=== PATIENT | female | born 1980 | race Two or more races ===

== ENCOUNTER 2024-07-12 11:42 | Inpatient (IN) | payer MEDICAID ==
[~2024-07-12] VITALS: Ht 157.5 cm; Wt 66.1 kg
[2024-07-12 15:05] VITALS: BP 124/80; PULSE 80; RESP 16; TEMP 98.8; O2SAT 100
[2024-07-12] MEDS ORDERED: diphenhydrAMINE 25mg capsule PO PRN (16:05)
[2024-07-12] MEDS ORDERED: loperamide 2mg capsule PO PRN (16:05)
[2024-07-12 17:01] VITALS: RESP 16; O2SAT 100
[2024-07-12] MEDS ORDERED: CLON1TAB2 PO (17:26)
[2024-07-12] MEDS ORDERED: LEVE750T6 PO (17:48)
[2024-07-12 19:00] VITALS: RESP 16; O2SAT 98
[2024-07-12] MEDS: acetaminophen 325mg tablet PO PRN (19:58)
[2024-07-12 20:00] VITALS: BP 111/84; PULSE 90; RESP 16; TEMP 98; O2SAT 98
[2024-07-12] MEDS: levetiracetam 250mg tablet PO SCH (20:41)
[2024-07-12] MEDS: gabapentin 300mg capsule PO SCH (20:41)
[2024-07-12] MEDS: traZODone 50mg tablet PO PRN (20:42)
[2024-07-13 07:30] VITALS: BP 105/60; PULSE 61; RESP 18; TEMP 97.2; O2SAT 98
[2024-07-13] MEDS: nicotine 21mg patch - 24 hr TD SCH (08:10)
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
[2024-07-13] MEDS: LORazepam 1 MG tablet PO ONE (11:52)
[2024-07-13 12:53] LABS: CHOL/HDL RATIO 2.8 (0.00-4.99); CHOLESTEROL 196 MG/DL (0-200); HDL CHOLESTEROL 70 MG/DL (35-60); LDL CHOLESTEROL 108 MG/DL (50-100); TRIGLYCERIDES 53 MG/DL (20-135)
[2024-07-13] MEDS: hydrOXYzine 25 MG tablet PO PRN (17:12)
--- NOTE | 2024-07-13 17:59 | HISTORY AND PHYSICAL-Residence ---
History & Physical Providers to CC Resident Creating Document: ELISHA ZHANG RES CC: MUSTAPHA TORIBIO MD ~ History of Present Illness Reason for Admit\Complaint: Suicidal thoughts, delusions History of Present Illness 44-year-old female with history of bipolar disorder, schizophrenia is admitted to the [facility] for suicidal thoughts. Patient stated she uses Keppra for epilepsy. Her last episode of seizure was three months ago. She is taking Keppra daily. She denies any other medical issues. Denies chest pain, cough, shortness of breath, headache, visual disturbances. Allergies: Coded Allergies: No Known Allergies (Unverified , 07/12/24) Home Medications Home Medications Active Reported Keppra (Levetiracetam) 750 Mg Tablet 1 Tab PO Q12H Klonopin (Clonazepam) 1 Mg Tablet 1 Tab PO DAILY PRN Past Surgical History Surgical History Comment Family History Family History: FH: bipolar disorder FATHER Past Social History Social History Comment Drinks alcohol daily, quitted alcohol few days ago history of methamphetamine use, quitted few days ago opioid addiction history of sober for the past three years, relapsed five months ago, quitted few days ago Smokes cannabis , later few days On smoking stopped a week ago ROS ROS ROS Constitutional: No fever, dizziness, weakness. no change in appetite/weight HEENT: No blurring of the vision, No sore throat, epistaxis, tinnitus Cardiovascular: No chest pain/discomfort, palpitations, syncope. No pedal edema Respiratory: No sob, cough,, hemoptysis Gastrointestinal: No abdominal pain, nausea, vomiting. No diarrhea, constipation, melena. Genitourinary: No frquency, urgency, incontinence, nocturia. No dysuria, hematuria Musculoskeletal: No arthralgia, myalgia Endocrine: No fatigue, polydipsia, polyuria. No heat or cold intolerance Neurologic: No headache, vertigo. No weakness, numbness or tingling of extremities Hematologic: No bleeding or bruises Reviewed in full. All negative except for pertinent positives in HPI Exam Vitals: Vital Signs Date Time Temp Pulse Resp B/P (MAP) Pulse Ox O2 Delivery O2 Flow Rate FiO2 07/13/24 07:30 18 98 Room Air 07/13/24 07:30 97.2 61 105/60 (75) General: General: Adult female, AAO x4, not in apparent distress Head: Normocephalic with an atraumatic Eyes: Pupils- 3mm, reacting to light, conjunctiva- anicteric Nose and throat: No polyps, septum- normal, no mucosal ulcers Neck: Supple, no lymphadenopathy, no carotid bruit Respiratory: No use of accessory muscles of respiration, Bilateral normal vesiscular breath sounds heard. No wheeze, rhochi or creps Cardiac: S1-S2 heard, rythm regular, no gallop/murmur Abdomen: non distended, no tenderness, no organomegaly, bowel sounds- heard Extremities: no clubbing, no pedal edema, no deformities, peripheral pulses- 2+ Skin: warm and dry, no rash, no purpura Neuro: No focal deficit, gross cranial nerve exam- normal Additional Plan 44-year-old female with history of bipolar disorder, schizophrenia is admitted to the [facility] for suicidal thoughts Bipolar disorder Schizophrenia Suicidal thoughts -management per Psychiatry Epilepsy -continue Keppra 750 mg q.12 Dyslipidemia LDL 108 -repeat lipid profile in three months Methamphetamine abuse-counseling program Nicotine abuse-nicotine patch History of opioid addiction- quitted few months ago Follow up on CBC, CMP, urine drug screen Date of Service: July 13, 2024 Billing Provider: MUSTAPHA TORIBIO MD Common Visit Codes: [id number] INP/OBS CARE (MOD) ELISHA ZHANG RES July 13, 2024 17:59 MUSTAPHA TORIBIO MD July 13, 2024 19:51
[2024-07-13 19:00] VITALS: RESP 16; O2SAT 97
[2024-07-13 20:00] VITALS: BP 115/74; PULSE 82; RESP 16; TEMP 98.4; O2SAT 97
[2024-07-14 07:12] LABS: BASOPHILS # (AUTO) 0.1 X10'3 (0-0.2); BASOPHILS % (AUTO) 0.9 % (0-1); EOSINOPHILS # (AUTO) 0.1 X10'3 (0-0.9); EOSINOPHILS % (AUTO) 1.1 % (0-6); HEMATOCRIT 32.5 % (35.0-45.0); HEMOGLOBIN 10.9 g/dl (12.0-16.0); LYMPHOCYTES # (AUTO) 2.5 X10'3 (1.1-4.8); LYMPHOCYTES % (AUTO) 32.9 % (21-51); MEAN CORPUSCULAR HEMOGLOBIN 28.9 PG (27.0-31.0); MEAN CORPUSCULAR HGB CONC 33.6 g/dL (33.0-36.5); MEAN PLATELET VOLUME 7.9 FL (7.4-10.4); MONOCYTES # (AUTO) 0.7 X10'3 (0-0.9); MONOCYTES % (AUTO) 9.7 % (2-12); NEUTROPHILS # (AUTO) 4.3 X10'3 (1.8-7.7); NEUTROPHILS % (AUTO) 55.4 % (42-75); PLATELET COUNT 404 X10'3 (140-440); RED BLOOD COUNT 3.78 X10'6 (4.20-5.60); RED CELL DISTRIBUTION WIDTH 13.4 % (11.5-14.5); WHITE BLOOD COUNT 7.7 X10'3 (4.5-11.0)
[2024-07-14 08:00] VITALS: BP 127/87; PULSE 72; RESP 16; TEMP 98.3; O2SAT 97
[2024-07-14 08:09] LABS: ALANINE AMINOTRANSFERASE 7 U/L (12-78); ALBUMIN 3.1 G/DL (3.4-5.0); ALKALINE PHOSPHATASE 54 IU/L (46-116); ANION GAP 4 (8-16); ASPARTATE AMINO TRANSFERASE 9 U/L (10-37); BILIRUBIN,TOTAL 0.2 MG/DL (0.1-1.0); BLOOD UREA NITROGEN 14 MG/DL (7-18); BUN/CREATININE RATIO 24.6 (10.0-20.0); CALCIUM 8.4 MG/DL (8.5-10.1); CHLORIDE 109 MMOL/L (99-107); CREATININE 0.57 MG/DL (0.40-0.90); GLUCOSE 90 MG/DL (70-104); POTASSIUM 4.4 MMOL/L (3.5-5.1); SODIUM 141 MMOL/L (135-145); TOTAL CARBON DIOXIDE 28.2 MMOL/L (24-32); TOTAL PROTEIN 6.2 G/DL (6.4-8.2); eCRCL 102 ML/MIN; eGFR > 90 ML/MIN
[2024-07-14 08:11] LABS: HBSAG SCREEN Negative (Negative); HEP B CORE AB, IGM Negative (Negative); HEP B CORE AB, TOT Negative (Negative)
[2024-07-14] MEDS: NICOTINE POLACRILEX 2 MG LOZENGE BC PRN (08:24)
[2024-07-14 08:25] VITALS: RESP 16; O2SAT 97
--- NOTE | 2024-07-14 08:34 | PROGRESS NOTE ---
Progress Note Dictate Providers to CC ~ Central Line/PICC still needed: N\\A Antibiotic Ordered?: No MRSA Education MRSA Education Provided to pt: No Objective Vitals Vital Signs Date Time Temp Pulse Resp B/P (MAP) Pulse Ox O2 Delivery O2 Flow Rate FiO2 07/13/24 20:00 98.4 82 16 115/74 (88) 97 Room Air Lab Results: 07/14/24 0702 07/14/24 0702 Problem\\Assessment\\Plan Problems/Diagnosis: (1) Depression, major, recurrent, moderate (2) Suicidal ideation (3) Delusion (4) Bipolar 1 disorder, depressed Psychiatrist's Progress Note Date of Service: July 14, 2024 Notes CHART REVIEW Patient brought in [facility] PD officer, voluntary psych eval. Patient reports having scary delusions which has been really bad in the past month. Patient concerned that she is forgetting to speak the [place]ian language and that she is going to [place] and has no future. Patient feels like her head is being operated on. Denies HI. When asked if patient has SI, patient states it is coming up. Internal voices telling me to get it over with. No active plan. Patient states that she wants to feel strong for her kids. Patient has reported history of epilepsy and bipolar schizophrenia. Last seizure two months ago. Patient states that she has been on Seroquel for three years but it is no longer helping with her symptoms. Patient hospitalized I [facility] three years ago. Patient reports an increase in ETOH use over the past month last drink a couple of days ago. Reportedly last used meth three months ago. Calm and cooperative. ASSESSMENT The patient was interviewed in observation room. The patient was actively standing in hallway. The patient endorses "I am doing better, good." "Still a little depressed." "I think the meds are working, tho." "I wanted to know if I can get some daily Ativan." Denies SI. Denies HI. Denies AVH. The patient endorses adequate sleep and food. The patient is stable no acute distress noted. The patient is anxious, less depressed, and engaged during session. Per staff report patient is medication compliant. Per staff report no abnormal behaviors. Will continue daily assessment and adjusting treatment as needed. Closely monitor behavior and response to medication during hospitalization. Results Of any Diagn. Testing REVIEW OF LABS URINE DRUG SCREEN NEGATIVE URINALYSIS NEGATIVE COVID NEGATIVE INFLUENZA A AND INFLUENZA B NEGATIVE WBC 9.2 RBC 4.03 HEMOGLOBIN 11.7 HEMATOCRIT 35.2 PLATELETS 458 SODIUM 141 POTASSIUM 4.2 CHLORIDE 102 ANION GAP 7 GLUCOSE 115 BUN EIGHT CREATININE 0.62 CALCIUM 9.5 THYROID 5.854 AST 8 ALT 12 Appearnace: Other (DISHEVELED. AVERAGE HEIGHT.AVERAGE WEIGHT FEMALE.BROWN SHOULDER LENGTH HAIR. WEARING STREET CLOTHING.) Speech: Other (CIRCUMSTANTIAL) Eye Contact: Normal Motor Activity: Normal Affect: Constricted Mood: Anxious Orientation Impairment: None Memory Impairment: None Attention: Normal Hallucinations: None Other: None Suicidality: None Homicidality: None Delusions: None Behavior: Cooperative Insight: Poor Judgment: Poor Treatment LATUDA 60MG PO WITH SUPPER THORAZINE 50 MG P.O. Q.6 PRN BENADRYL 50 MG P.O. Q.6 PRN GABAPENTIN 300 MG PO TID HYDROXYZINE 50 MG P.O. TID TRAZODONE 50 MG P.O. QHS PRN Monitoring by Staff, Milieu, Group, and Individual counseling as needed -- According to the [place] Suicide Assessment the above named patient is on Q15 MINUTE CHECKS. [id number]- The patient does not have a good safety plan for discharge at this time. We are still titrating medications to an effective dose while maintaining a therapeutic environment to prevent decompensation and readmission. REVIEW OF Clinical notes [X ] RN notes [X] PCT documentation [X] SW notes Labs [ X] Medications [X] Care trends/care activity [X] Vitals [X] DISCUSSION WITH extruder [X] Staff SW [X] Treatment Team [X] Discharge UNSURE AT THIS TIME. DISCHARGE HOME ONCE STABLE. CODING VISIT-PSYCHIATRY Date of Service: July 14, 2024 Billing Provider: DAVI FUNES APRN Psych Common Visit Codes: [id number] INP/OBS CARE(Mod) DAVI FUNES APRN July 14, 2024 08:34
[2024-07-14] MEDS: magnesium hydroxide 30ml (MOM) UD suspension PO PRN (08:36)
[2024-07-14 16:00] LABS: URINE AMPHETAMINE SCREEN NEGATIVE (Neg); URINE BARBITUATE SCREEN NEGATIVE (Neg); URINE BENZODIAZEPINES SCREEN NEGATIVE (Neg); URINE CANNABINOID SCREEN NEGATIVE (Neg); URINE COCAINE SCREEN NEGATIVE (Neg); URINE METHADONE SCREEN NEGATIVE (Neg); URINE OPIATE SCREEN NEGATIVE (Neg); URINE PHENCYCLIDINE SCREEN NEGATIVE (Neg)
[2024-07-14] MEDS: lurasidone 60mg tablet PO SCH (17:39)
[2024-07-14 19:00] VITALS: RESP 17; O2SAT 98
[2024-07-14 20:00] VITALS: BP 110/68; PULSE 77; RESP 15; TEMP 97.9; O2SAT 98
[2024-07-14] MEDS: hydrOXYzine 25 MG tablet PO SCH (20:22)
[2024-07-15 07:29] VITALS: BP 121/74; PULSE 80; RESP 14; TEMP 98.1; O2SAT 95
--- NOTE | 2024-07-15 11:24 | PROGRESS NOTE ---
Daily Progress Note Providers to CC ~ no new complaint today, resting comfortably in the bed Central Line/PICC still needed: No Galvan-Non Protocol Galvan Indications Met/Not Met: F/C Indications Not Met Antibiotic Timeout Antibiotic Ordered?: No MRSA Education MRSA Education Provided to pt: No Subjective As above Objective Vital Signs Date Time Temp Pulse Resp B/P (MAP) Pulse Ox O2 Delivery O2 Flow Rate FiO2 07/15/24 07:29 98.1 80 14 121/74 (90) 95 Room Air Vital signs, stable ,afebrile. Pulse Oximetry reflects adequate oxygenation. General: well developed, well nourished. Awake , alert, and oriented x4, resting comfortably in the bed, in no acute distress . Skin: Warm, dry, no pallor, no rash or petechiae. HEENT: Atraumatic, normocephalic, EOMI, anicteric sclera B; pink conjunctiva; PERRLA, normal oropharynx, moist oral and nasal mucosa. Tympanic membrane , nose , throat clear. Neck: Trachea midline. Supple, full range of motion, no JVD, bruit , hepatojugular reflex , lymphadenopathy or masses, or other lesions Cardiac: Regular rhythm, regular rate no murmurs, rubs, or gallops. Normal S1 and S2, no S3 noticed. PMI is normal. Respiratory: Equal breath sounds bilaterally, no tachypnea; lungs clear to auscultation bilaterally, no wheezing ,rub or rales, or crackles. Chest wall is symmetric and without deformity. No signs of trauma. Chest wall is nontender. No signs of respiratory distress. Resonance is normal upon percussion bilaterally. Gastrointestinal: Abdomen symmetric, non-distended, soft, non-tender, normal bowel sounds x4 quadrant, normoactive, no hepatosplenomegaly , no masses , no bruit, no flank pain bilaterally. No voluntary guarding, rebound, or rigidity. No tenderness to percussion. No pulsatile masses. Equal femoral pulses. No Dye's sign or McBurney point tenderness. Back; no CVA tenderness bilaterally, no deformities. Neck and back are without deformity as well. No tenderness noted on palpation of the spinous processes. Spinous processes are midline. Cervical, thoracic, and lumbar paraspinal muscles are not tender and are without spasm. Musculoskeletal: Extremities, normal range of motion, non-tender, muscle strength 5/5 x 4. Negative Homans signs bilaterally on lower extremity. Distal pulses full symmetrical, no clubbing, cyanosis , edema. Neurological: Speech is clear, alert, and oriented x 4. No motor or sensory deficit, deep tendon reflexes normal, cerebellar intact. Cranial nerves II-XII intact. Psych: Alert and or appropriate, normal affect. Vascular: Good distal pulses, which are equal x4; capillary refill less than 2 seconds. Lymphatic, no lymphadenopathy. Result Diagram: 07/14/24 0707/14/24 0702 Problem\Assessment\Plan Assessment/Plan 44-year-old female with history of bipolar disorder, schizophrenia is admitted to the [facility] for suicidal thoughts Bipolar disorder Schizophrenia Suicidal thoughts -management per Psychiatry Epilepsy -continue Keppra 750 mg q.12 Dyslipidemia LDL 108 -repeat lipid profile in three months Methamphetamine abuse-counseling program Nicotine abuse-nicotine patch History of opioid addiction- quitted few months ago Lap completed, reviewed, CBC, CMP, urine drug screen Hospitalist team we will follow patient per protocol Sepsis Screening Reassessment Date: July 15, 2024 Date of Service: July 15, 2024 Billing Provider: SUSANA CABRERA MD Common Visit Codes: [id number] INP/OBS CARE(LOW) SUSANA CABRERA MD July 15, 2024 11:24
--- NOTE | 2024-07-15 12:54 | PROGRESS NOTE ---
Progress Note Dictate Providers to CC ~ Central Line/PICC still needed: N\\A Antibiotic Ordered?: No MRSA Education MRSA Education Provided to pt: No Objective Vitals Vital Signs Date Time Temp Pulse Resp B/P (MAP) Pulse Ox O2 Delivery O2 Flow Rate FiO2 07/15/24 07:30 Room Air 07/15/24 07:29 98.1 80 14 121/74 (90) 95 Lab Results: 07/14/24 0702 07/14/24 0702 Counseling Services Smoking & Tobacco Cessation: > 10 Minutes Problem\\Assessment\\Plan Problems/Diagnosis: (1) Depression, major, recurrent, moderate (2) Suicidal ideation (3) Delusion (4) Bipolar 1 disorder, depressed Psychiatrist's Progress Note Date of Service: July 15, 2024 Notes CHART REVIEW Patient brought in [facility] PD officer, [facility] psych eval. Patient reports having scary delusions which has been really bad in the past month. Patient concerned that she is forgetting to speak the [place] language and that she is going to [place] and has no future. Patient feels like her head is being operated on. Denies HI. When asked if patient has SI, patient states it is coming up. Internal voices telling me to get it over with. No active plan. Patient states that she wants to feel strong for her kids. Patient has reported history of epilepsy and bipolar schizophrenia. Last seizure two months ago. Patient states that she has been on Seroquel for three years but it is no longer helping with her symptoms. Patient hospitalized I [facility] three years ago. Patient reports an increase in ETOH use over the past month last drink a couple of days ago. Reportedly last used meth three months ago. Calm and cooperative. ASSESSMENT The patient was interviewed in observation room. The patient was actively walking in hallway. The patient endorses "I am feeling better today." I did some journaling and some yoga get today." The patient endorses her anxiety is "through the roof." Denies SI. Denies HI. Denies AVH. The patient endorses adequate sleep and food. The patient is stable no acute distress noted. The patient is a bit anxious, less depressed, and engaged during session. Per staff report patient is medication compliant. Per staff report no abnormal behaviors. Staff report patient is participating in unit/group activities. Will continue daily assessment and adjusting treatment as needed. Closely monitor behavior and response to medication during hospitalization. Results Of any Diagn. Testing REVIEW OF LABS URINE DRUG SCREEN NEGATIVE URINALYSIS NEGATIVE COVID NEGATIVE INFLUENZA A AND INFLUENZA B NEGATIVE WBC 9.2 RBC 4.03 HEMOGLOBIN 11.7 HEMATOCRIT 35.2 PLATELETS 458 SODIUM 141 POTASSIUM 4.2 CHLORIDE 102 ANION GAP 7 GLUCOSE 115 BUN EIGHT CREATININE 0.62 CALCIUM 9.5 THYROID 5.854 AST 8 ALT 12 Appearnace: Other (APPROPRIATE. AVERAGE HEIGHT.AVERAGE WEIGHT FEMALE.BROWN SHOULDER LENGTH HAIR. WEARING STREET CLOTHING) Speech: Other (CIRCUMSTANTIAL) Eye Contact: Other (INTERMITTENT) Motor Activity: Normal Affect: Flat Mood: Anxious, Depressed Orientation Impairment: None Memory Impairment: None Attention: Normal Hallucinations: None Other: None Suicidality: None Homicidality: None Delusions: None Behavior: Cooperative Insight: Fair, Poor Judgment: Poor Treatment LATUDA 60MG PO WITH SUPPER THORAZINE 50 MG P.O. Q.6 PRN BENADRYL 50 MG P.O. Q.6 PRN GABAPENTIN 300 MG PO TID HYDROXYZINE 50 MG P.O. TID TRAZODONE 50 MG P.O. QHS PRN Monitoring by Staff, Milieu, Group, and Individual counseling as needed -- According to the [place] Suicide Assessment the above named patient is on Q15 MINUTE CHECKS. [id number]- The patient does not have a good safety plan for discharge at this time. We are still titrating medications to an effective dose while maintaining a therapeutic environment to prevent decompensation and readmission. REVIEW OF Clinical notes [X ] RN notes [X] PCT documentation [X] SW notes Labs [ X] Medications [X] Care trends/care activity [X] Vitals [X] DISCUSSION WITH retail operations manager [X] Staff SW [X] Treatment Team [X] Discharge UNSURE AT THIS TIME. DISCHARGE HOME ONCE STABLE. CODING VISIT-PSYCHIATRY Date of Service: July 15, 2024 Billing Provider: DAVI FUNES APRN Psych Common Visit Codes: [id number] INP/OBS CARE(Mod) DAVI FUNES APRN July 15, 2024 12:54
[2024-07-15] MEDS: LORazepam 1 MG tablet PO ONE (13:00)
[2024-07-15 19:00] VITALS: BP 112/71; PULSE 88; RESP 16; TEMP 97.1; O2SAT 98
[2024-07-15] MEDS: chlorproMAZINE 25mg tablet PO PRN (20:08)
[2024-07-16 07:00] VITALS: RESP 14; O2SAT 100
[2024-07-16 07:45] VITALS: BP 100/59; PULSE 71; RESP 14; TEMP 98.3; O2SAT 100
--- NOTE | 2024-07-16 14:50 | PROGRESS NOTE ---
Progress Note Dictate Providers to CC ~ Central Line/PICC still needed: N\\A Antibiotic Ordered?: No MRSA Education MRSA Education Provided to pt: No Objective Vitals Vital Signs Date Time Temp Pulse Resp B/P (MAP) Pulse Ox O2 Delivery O2 Flow Rate FiO2 07/16/24 07:45 98.3 71 14 100/59 (73) 100 Room Air Lab Results: 07/14/24 0702 07/14/24 0702 Counseling Services Smoking & Tobacco Cessation: > 10 Minutes Problem\\Assessment\\Plan Problems/Diagnosis: (1) Depression, major, recurrent, moderate (2) Suicidal ideation (3) Delusion (4) Bipolar 1 disorder, depressed Psychiatrist's Progress Note Date of Service: July 16, 2024 Notes CHART REVIEW Patient brought in [facility] PD officer, voluntary psych eval. Patient reports having scary delusions which has been really bad in the past month. Patient concerned that she is forgetting to speak the [place]ones[place] language and that she is going to [place] and has no future. Patient feels like her head is being operated on. Denies HI. When asked if patient has SI, patient states it is coming up. Internal voices telling me to get it over with. No active plan. Patient states that she wants to feel strong for her kids. Patient has reported history of epilepsy and bipolar schizophrenia. Last seizure two months ago. Patient states that she has been on Seroquel for three years but it is no longer helping with her symptoms. Patient hospitalized I [facility] three years ago. Patient reports an increase in ETOH use over the past month last drink a couple of days ago. Reportedly last used meth three months ago. Calm and cooperative. ASSESSMENT The patient was interviewed in observation room. The patient was actively in rec room doing yoga.. The patient endorses "I am feeling a lot better." The patient endorses "My anxiety is okay; I am just anxious about normal things." "I am excited about discharging and starting new things and stuff like that." "I will be honest I am still very anxious." Denies SI. Denies HI. Denies AVH. The patient endorses adequate sleep and food. The patient is stable no acute distress noted. The patient is anxious, less depressed, and engaged during session. Per staff report patient is medication compliant. Per staff report no abnormal behaviors. Staff report patient is participating in unit/group activities. Will continue daily assessment and adjusting treatment as needed. Closely monitor behavior and response to medication during hospitalization. Results Of any Diagn. Testing REVIEW OF LABS URINE DRUG SCREEN NEGATIVE URINALYSIS NEGATIVE COVID NEGATIVE INFLUENZA A AND INFLUENZA B NEGATIVE WBC 9.2 RBC 4.03 HEMOGLOBIN 11.7 HEMATOCRIT 35.2 PLATELETS 458 SODIUM 141 POTASSIUM 4.2 CHLORIDE 102 ANION GAP 7 GLUCOSE 115 BUN EIGHT CREATININE 0.62 CALCIUM 9.5 THYROID 5.854 AST 8 ALT 12 Appearnace: Other (APPROPRIATE. AVERAGE HEIGHT.AVERAGE WEIGHT FEMALE.BROWN SHOULDER LENGTH HAIR. WEARING STREET CLOTHING) Speech: Other (CIRCUMSTANTIAL) Eye Contact: Other (INTERMITTENT) Motor Activity: Normal Affect: Constricted Mood: Anxious Orientation Impairment: None Memory Impairment: None Attention: Normal Hallucinations: None Other: None Suicidality: None Homicidality: None Delusions: None Behavior: Cooperative Insight: Poor Judgment: Poor Treatment LATUDA 60MG PO WITH SUPPER THORAZINE 50 MG P.O. Q.6 PRN BENADRYL 50 MG P.O. Q.6 PRN GABAPENTIN 300 MG PO TID HYDROXYZINE 50 MG P.O. TID TRAZODONE 50 MG P.O. QHS PRN Monitoring by Staff, Milieu, Group, and Individual counseling as needed -- According to the [place] Suicide Assessment the above named patient is on Q15 MINUTE CHECKS. [id number]- The patient does not have a good safety plan for discharge at this time. We are still titrating medications to an effective dose while maintaining a therapeutic environment to prevent decompensation and readmission. REVIEW OF Clinical notes [X ] RN notes [X] PCT documentation [X] SW notes Labs [ X] Medications [X] Care trends/care activity [X] Vitals [X] DISCUSSION WITH plate glass grinder [X] Staff SW [X] Treatment Team [X] Discharge UNSURE AT THIS TIME. DISCHARGE HOME ONCE STABLE. CODING VISIT-PSYCHIATRY Date of Service: July 16, 2024 Billing Provider: DAVI FUNES APRN Psych Common Visit Codes: [id number] INP/OBS CARE(Mod) DAVI FUNES APRN July 16, 2024 14:49
[2024-07-16] MEDS: LORazepam 1 MG tablet PO ONE (15:26)
[2024-07-16 19:00] VITALS: RESP 14; O2SAT 98
[2024-07-16] MEDS: gabapentin 300mg capsule PO SCH (19:44)
[2024-07-16] MEDS: hydrOXYzine 25 MG tablet PO PRN (19:49)
[2024-07-16 20:00] VITALS: BP 110/71; PULSE 77; RESP 15; TEMP 98.3; O2SAT 99
[2024-07-17 07:00] VITALS: RESP 12; O2SAT 97
[2024-07-17 07:21] VITALS: BP 108/75; PULSE 77; RESP 12; TEMP 98.3; O2SAT 97
--- NOTE | 2024-07-17 09:56 | PROGRESS NOTE ---
Daily Progress Note Providers to CC ~ no new complaint today, resting comfortably in the bed Central Line/PICC still needed: No Galvan-Non Protocol Galvan Indications Met/Not Met: F/C Indications Not Met Antibiotic Timeout Antibiotic Ordered?: No MRSA Education MRSA Education Provided to pt: No Subjective As above Objective Vital Signs Date Time Temp Pulse Resp B/P (MAP) Pulse Ox O2 Delivery O2 Flow Rate FiO2 07/17/24 07:21 98.3 77 12 108/75 (86) 97 Room Air Vital signs, stable ,afebrile. Pulse Oximetry reflects adequate oxygenation. General: well developed, well nourished. Awake , alert, and oriented x4, resting comfortably in the bed, in no acute distress . Skin: Warm, dry, no pallor, no rash or petechiae. HEENT: Atraumatic, normocephalic, EOMI, anicteric sclera B; pink conjunctiva; PERRLA, normal oropharynx, moist oral and nasal mucosa. Tympanic membrane , nose , throat clear. Neck: Trachea midline. Supple, full range of motion, no JVD, bruit , hepatojugular reflex , lymphadenopathy or masses, or other lesions Cardiac: Regular rhythm, regular rate no murmurs, rubs, or gallops. Normal S1 and S2, no S3 noticed. PMI is normal. Respiratory: Equal breath sounds bilaterally, no tachypnea; lungs clear to auscultation bilaterally, no wheezing ,rub or rales, or crackles. Chest wall is symmetric and without deformity. No signs of trauma. Chest wall is nontender. No signs of respiratory distress. Resonance is normal upon percussion bilaterally. Gastrointestinal: Abdomen symmetric, non-distended, soft, non-tender, normal bowel sounds x4 quadrant, normoactive, no hepatosplenomegaly , no masses , no bruit, no flank pain bilaterally. No voluntary guarding, rebound, or rigidity. No tenderness to percussion. No pulsatile masses. Equal femoral pulses. No Dye's sign or McBurney point tenderness. Back; no CVA tenderness bilaterally, no deformities. Neck and back are without deformity as well. No tenderness noted on palpation of the spinous processes. Spinous processes are midline. Cervical, thoracic, and lumbar paraspinal muscles are not tender and are without spasm. Musculoskeletal: Extremities, normal range of motion, non-tender, muscle strength 5/5 x 4. Negative Homans signs bilaterally on lower extremity. Distal pulses full symmetrical, no clubbing, cyanosis , edema. Neurological: Speech is clear, alert, and oriented x 4. No motor or sensory deficit, deep tendon reflexes normal, cerebellar intact. Cranial nerves II-XII intact. Psych: Alert and or appropriate, normal affect. Vascular: Good distal pulses, which are equal x4; capillary refill less than 2 seconds. Lymphatic, no lymphadenopathy. Result Diagram: 07/14/24 0707/14/24 0702 Problem\Assessment\Plan Assessment/Plan 44-year-old female with history of bipolar disorder, schizophrenia is admitted to the [facility] for suicidal thoughts Bipolar disorder Schizophrenia Suicidal thoughts -management per Psychiatry Epilepsy -continue Keppra 750 mg q.12 Dyslipidemia LDL 108 -repeat lipid profile in three months Methamphetamine abuse-counseling program Nicotine abuse-nicotine patch History of opioid addiction- quitted few months ago Lap completed, reviewed, CBC, CMP, urine drug screen Hospitalist team we will follow patient per protocol Sepsis Screening Reassessment Date: July 17, 2024 Date of Service: July 17, 2024 Billing Provider: SUSANA CABRERA MD Common Visit Codes: [id number] INP/OBS CARE(LOW) SUSANA CABRERA MD July 17, 2024 09:56
[2024-07-17] MEDS: gabapentin 300mg capsule PO SCH (12:33)
--- NOTE | 2024-07-17 14:52 | PROGRESS NOTE ---
Progress Note Dictate Providers to CC ~ Central Line/PICC still needed: N\\A Antibiotic Ordered?: No MRSA Education MRSA Education Provided to pt: No Objective Vitals Vital Signs Date Time Temp Pulse Resp B/P (MAP) Pulse Ox O2 Delivery O2 Flow Rate FiO2 07/17/24 07:21 98.3 77 12 108/75 (86) 97 Room Air Lab Results: 07/14/24 0702 07/14/24 0702 Problem\\Assessment\\Plan Problems/Diagnosis: (1) Depression, major, recurrent, moderate (2) Suicidal ideation (3) Delusion (4) Bipolar 1 disorder, depressed Psychiatrist's Progress Note Date of Service: July 17, 2024 Notes CHART REVIEW Patient brought in [facility] PD officer, voluntary psych eval. Patient reports having scary delusions which has been really bad in the past month. Patient concerned that she is forgetting to speak the [place] language and that she is going to [place] and has no future. Patient feels like her head is being operated on. Denies HI. When asked if patient has SI, patient states it is coming up. Internal voices telling me to get it over with. No active plan. Patient states that she wants to feel strong for her kids. Patient has reported history of epilepsy and bipolar schizophrenia. Last seizure two months ago. Patient states that she has been on Seroquel for three years but it is no longer helping with her symptoms. Patient hospitalized I [facility] three years ago. Patient reports an increase in ETOH use over the past month last drink a couple of days ago. Reportedly last used meth three months ago. Calm and cooperative. ASSESSMENT The patient was interviewed in observation room. The patient was actively standing in hallway. The patient endorses "I am doing well." The patient she recently graduated with an associate's degree in sociology and she went ahead and arm as [employer] [facility] [employer] to attend her graduation on 08/10. The patient endorses no worsening mental health issues. Denies SI. Denies HI. Denies AVH. The patient endorses adequate sleep and food. The patient is stable no acute distress noted. The patient is calm, and engaged during session. Per staff report patient is medication compliant. Per staff report no abnormal behaviors. Staff report patient is participating in unit/group activities. Will continue daily assessment and adjusting treatment as needed. Closely monitor behavior and response to medication during hospitalization. Results Of any Diagn. Testing REVIEW OF LABS URINE DRUG SCREEN NEGATIVE URINALYSIS NEGATIVE COVID NEGATIVE INFLUENZA A AND INFLUENZA B NEGATIVE WBC 9.2 RBC 4.03 HEMOGLOBIN 11.7 HEMATOCRIT 35.2 PLATELETS 458 SODIUM 141 POTASSIUM 4.2 CHLORIDE 102 ANION GAP 7 GLUCOSE 115 BUN EIGHT CREATININE 0.62 CALCIUM 9.5 THYROID 5.854 AST 8 ALT 12 Appearnace: Other (APPROPRIATE. AVERAGE HEIGHT.AVERAGE WEIGHT FEMALE.BROWN SHOULDER LENGTH HAIR. WEARING STREET CLOTHING) Speech: Normal Eye Contact: Normal Motor Activity: Normal Affect: Full Mood: Euthymic Orientation Impairment: None Memory Impairment: None Attention: Normal Hallucinations: None Other: None Suicidality: None Homicidality: None Delusions: None Behavior: Cooperative Insight: Fair Judgment: Fair Treatment LATUDA 60MG PO WITH SUPPER THORAZINE 50 MG P.O. Q.6 PRN BENADRYL 50 MG P.O. Q.6 PRN GABAPENTIN 300 MG PO TID HYDROXYZINE 50 MG P.O. TID TRAZODONE 50 MG P.O. QHS PRN Monitoring by Staff, Milieu, Group, and Individual counseling as needed -- According to the [place] Suicide Assessment the above named patient is on Q15 MINUTE CHECKS. VOLUNTARY REVIEW OF Clinical notes [X ] RN notes [X] PCT documentation [X] SW notes Labs [ X] Medications [X] Care trends/care activity [X] Vitals [X] DISCUSSION WITH leak detection engineer [X] Staff SW [X] Treatment Team [X] Discharge UNSURE AT THIS TIME. DISCHARGE HOME ONCE STABLE. CODING VISIT-PSYCHIATRY Date of Service: July 17, 2024 Billing Provider: DAVI FUNES APRN Psych Common Visit Codes: [id number] INP/OBS CARE(Mod) DAVI FUNES APRN July 17, 2024 14:52
[2024-07-17 19:00] VITALS: RESP 16; O2SAT 100
[2024-07-17 19:17] VITALS: BP 126/74; PULSE 84; RESP 16; TEMP 98; O2SAT 100
[2024-07-17] MEDS: mag hydrox/Alum hydrox/simeth 30ml oral suspension PO PRN (20:56)
[2024-07-18 07:04] VITALS: BP 110/47; PULSE 72; RESP 16; TEMP 96.9; O2SAT 97
[2024-07-18 07:40] VITALS: RESP 16; O2SAT 97
--- NOTE | 2024-07-18 10:17 | PROGRESS NOTE ---
Progress Note Dictate Providers to CC ~ Central Line/PICC still needed: N\\A Antibiotic Ordered?: No MRSA Education MRSA Education Provided to pt: No Objective Vitals Vital Signs Date Time Temp Pulse Resp B/P (MAP) Pulse Ox O2 Delivery O2 Flow Rate FiO2 07/18/24 07:40 16 97 Room Air 07/18/24 07:04 96.9 72 110/47 (68) Lab Results: 07/14/24 0702 07/14/24 0702 Problem\\Assessment\\Plan Problems/Diagnosis: (1) Depression, major, recurrent, moderate (2) Suicidal ideation (3) Delusion (4) Bipolar 1 disorder, depressed Psychiatrist's Progress Note Date of Service: July 18, 2024 Notes CHART REVIEW Patient brought in [facility] PD officer, voluntary psych eval. Patient reports having scary delusions which has been really bad in the past month. Patient concerned that she is forgetting to speak the Malay language and that she is going to [place] and has no future. Patient feels like her head is being operated on. Denies HI. When asked if patient has SI, patient states it is coming up. Internal voices telling me to get it over with. No active plan. Patient states that she wants to feel strong for her kids. Patient has reported history of epilepsy and bipolar schizophrenia. Last seizure two months ago. Patient states that she has been on Seroquel for three years but it is no longer helping with her symptoms. Patient hospitalized I [facility] three years ago. Patient reports an increase in ETOH use over the past month last drink a couple of days ago. Reportedly last used meth three months ago. Calm and cooperative. ASSESSMENT The patient was interviewed in observation room. The patient was actively sitting in rec room. The patient endorses "Very well." The patient endorses no worsening mental health issues. Denies SI. Denies HI. Denies AVH. The patient endorses adequate sleep and food. The patient is stable no acute distress noted. The patient is calm, and engaged during session. Per staff report patient is medication compliant. Per staff report no abnormal behaviors. Staff report patient is participating in unit/group activities. Will continue daily assessment and adjusting treatment as needed. Closely monitor behavior and response to medication during hospitalization. Results Of any Diagn. Testing REVIEW OF LABS URINE DRUG SCREEN NEGATIVE URINALYSIS NEGATIVE COVID NEGATIVE INFLUENZA A AND INFLUENZA B NEGATIVE WBC 9.2 RBC 4.03 HEMOGLOBIN 11.7 HEMATOCRIT 35.2 PLATELETS 458 SODIUM 141 POTASSIUM 4.2 CHLORIDE 102 ANION GAP 7 GLUCOSE 115 BUN EIGHT CREATININE 0.62 CALCIUM 9.5 THYROID 5.854 AST 8 ALT 12 Appearnace: Other (APPROPRIATE. AVERAGE HEIGHT.AVERAGE WEIGHT FEMALE.BROWN SHOULDER LENGTH HAIR. WEARING STREET CLOTHING) Speech: Other (CIRCUMSTANTIAL) Eye Contact: Normal Motor Activity: Normal Affect: Full Mood: Euthymic Orientation Impairment: None Memory Impairment: None Attention: Normal Hallucinations: None Other: None Suicidality: None Homicidality: None Delusions: None Behavior: Cooperative Insight: Fair Judgment: Fair Treatment LATUDA 60MG PO WITH SUPPER THORAZINE 50 MG P.O. Q.6 PRN BENADRYL 50 MG P.O. Q.6 PRN GABAPENTIN 300 MG PO TID HYDROXYZINE 50 MG P.O. TID TRAZODONE 50 MG P.O. QHS PRN Monitoring by Staff, Milieu, Group, and Individual counseling as needed -- According to the [place] Suicide Assessment the above named patient is on Q15 MINUTE CHECKS. VOLUNTARY REVIEW OF Clinical notes [X ] RN notes [X] PCT documentation [X] SW notes Labs [ X] Medications [X] Care trends/care activity [X] Vitals [X] DISCUSSION WITH office professional [X] Staff SW [X] Treatment Team [X] Discharge DISCHARGE HOME TOMORROW CODING VISIT-PSYCHIATRY Date of Service: July 18, 2024 Billing Provider: DAVI FUNES APRN Psych Common Visit Codes: [id number] INP/OBS CARE(Low) DAVI FUNES APRN July 18, 2024 10:17
[2024-07-18] MEDS: acetaminophen 325mg tablet PO PRN (13:19)
[2024-07-18] MEDS ORDERED: gabapentin capsule PO (13:26)
[2024-07-18 20:00] VITALS: BP 96/59; PULSE 72; RESP 17; TEMP 97; O2SAT 97
[2024-07-19] MEDS ORDERED: gabapentin capsule PO (05:02)
[2024-07-19] MEDS ORDERED: LEVE750T6 PO (05:04)
[2024-07-19] MEDS ORDERED: LURA60TA PO (05:04)
[2024-07-19 07:00] VITALS: BP 115/61; PULSE 84; RESP 16; TEMP 98.4; O2SAT 100; O2SAT 96
--- NOTE | 2024-07-19 13:01 | PROGRESS NOTE ---
Daily Progress Note Providers to CC ~ please disregard this entry Is duplicate Thank you very much Not available MB Antibiotic Timeout Antibiotic Ordered?: N/A Objective Vital Signs Date Time Temp Pulse Resp B/P (MAP) Pulse Ox O2 Delivery O2 Flow Rate FiO2 07/19/24 07:00 98.4 84 16 115/61 (79) 96 Room Air Problem\Assessment\Plan Assessment/Plan 44-year-old female with history of bipolar disorder, schizophrenia is admitted to the [facility] for suicidal thoughts Bipolar disorder Schizophrenia Suicidal thoughts -management per Psychiatry Epilepsy -continue Keppra 750 mg q.12 Dyslipidemia LDL 108 -repeat lipid profile in three months Methamphetamine abuse-counseling program Nicotine abuse-nicotine patch History of opioid addiction- quitted few months ago Lap completed, reviewed, CBC, CMP, urine drug screen Hospitalist team we will follow patient per protocol Date of Service: July 19, 2024 Billing Provider: SUSANA CABRERA MD Common Visit Codes: NOT BILLABLE SUSANA CABRERA MD July 19, 2024 13:01
--- NOTE | 2024-07-19 13:50 | DISCHARGE SUMMARY ---
Discharge Summary Providers to CC ~ Discharge Summary Admission Diagnosis: DEPRESSION, RECURRENT. SUICIDAL IDEATION. DELUSION. BIPOLAR 1 DEPRESSION Hospital Course DATE OF ADMISSION: DATE OF DISCHARGE: Discharge Diagnosis\\Comment: DEPRESSION, RECURRENT. SUICIDAL IDEATION. DELUSION. BIPOLAR 1 DEPRESSION Operations\\Procedures: NONE Consultants: MEDICAL TEAM Complications: NONE Condition on DC: Stable 2 or more antipsychotic used: No 2/more antipsychotic addressed: No Does Patient smoke: Yes Smoking education given.: Yes New Medications: [gabapentin capsule] () 300 MG CAPSULE 300 MG PO TID for 14 Days, #60 Lurasidone HCl (Latuda) 60 Mg Tablet 60 MG PO WS for 14 Days, #14 TAB Continued Medications: Clonazepam (Klonopin) 1 Mg Tablet 1 TAB PO DAILY PRN for anxiety, TAB 0 Refills Levetiracetam (Keppra) 750 Mg Tablet 1 TAB PO Q12H for 14 Days, #30 TAB 0 Refills (This prescription has been renewed) Discharge Summary: CHART REVIEW Patient brought in by [place] PD officer, [facility] psych eval. Patient reports having scary delusions which has been really bad in the past month. Patient concerned that she is forgetting to speak the [place] language and that she is going to [place] and has no future. Patient feels like her head is being operated on. Denies HI. When asked if patient has SI, patient states it is coming up. Internal voices telling me to get it over with. No active plan. Patient states that she wants to feel strong for her kids. Patient has reported history of epilepsy and bipolar schizophrenia. Last seizure two months ago. Patient states that she has been on Seroquel for three years but it is no longer helping with her symptoms. Patient hospitalized I [facility] three years ago. Patient reports an increase in ETOH use over the past month last drink a couple of days ago. Reportedly last used meth three months ago. Calm and cooperative. Patient actively seen and examined on day of discharge 07/19/2024, by myself, SAMIRA Mckeon. The patient is interviewed in observation room. The patient endorses "Good." Denies SI. Denies HI. Denies AVH. Abby was able to formulate a safety plan which includes going to the emergency room if symptoms return or worsen. Call [phone] or [phone] for immediate assistance if necessary. During his hospital stay, Abby receive multidisciplinary treatment he adhered to his medication regimen and has been pleasant and cooperative. She denies any suicidal ideation (SI), homicidal ideation (HI), auditory/visual hallucination ( HI). Staff has reported no behavioral issues, and the patient has been sleeping well, adequate food intake, with no mood or behavioral changes noted. The decision to discharge Abby was made in consensus with the treatment team, including the family welfare social work professor, special investigation unit investigator, and charge authorizer on duty. The patient was E-scribed a 14-day supply of medication to preferred pharmacy. MENTAL STATUS EXAM APPEARANCE: APPROPRIATELY. DRESSED IN STREET CLOTHING. SPEECH: CIRCUMSTANCE EYE CONTACT: NORMAL AFFECT: CONGRUENT WITH MOOD MOOD: "GOOD" ORIENTATION IMPAIRMENT: NONE MEMORY IMPAIRMENT: NONE ATTENTION: NORMAL HALLUCINATIONS: NONE SUICIDALITY: NONE HOMICIDALITY: NONE DELUSIONS: NONE BEHAVIOR: COOPERATIVE, PLEASANT JUDGMENT: FAIR INSIGHT: FAIR Continue Current Inpatient Psychotropic Regimen @ home Follow-Up with Psychiatric Provider Safety Plan Discussed DISCHARGE CONDITION: Her readiness for discharge is supported by his stable mental status, adherence to treatment, and proactive approach to managing his mental health. Denies SI. Denies HI. Denies A/V/H. The patient has been informed to continue follow-up care to ensure ongoing support and monitoring. Patient discharged to home. *Problems/Diagnosis: (1) Depression, major, recurrent, moderate (2) Suicidal ideation (3) Delusion (4) Bipolar 1 disorder, depressed Total Time Spent on D/C: > 30 Minutes Counseling Services Smoking & Tobacco Cessation: > 10 Minutes CODING VISIT-PSYCHIATRY Date of Service: July 19, 2024 Billing Provider: DAVI FUNES APRN Psych Common Visit Codes: [id number] DISCH DAY >30min DAVI FUNES APRN July 19, 2024 13:47
--- NOTE | 2024-07-19 19:46 | PROGRESS NOTE ---
Daily Progress Note Providers to CC ~ no new complaint today, awaiting to be discharged Central Line/PICC still needed: No Galvan-Non Protocol Galvan Indications Met/Not Met: F/C Indications Not Met Antibiotic Timeout Antibiotic Ordered?: No MRSA Education MRSA Education Provided to pt: No Subjective As above Objective Vital Signs Date Time Temp Pulse Resp B/P (MAP) Pulse Ox O2 Delivery O2 Flow Rate FiO2 07/19/24 07:00 98.4 84 16 115/61 (79) 96 Room Air Vital signs, stable ,afebrile. Pulse Oximetry reflects adequate oxygenation. General: well developed, well nourished. Awake , alert, and oriented x4, resting comfortably in the bed, in no acute distress . Skin: Warm, dry, no pallor, no rash or petechiae. HEENT: Atraumatic, normocephalic, EOMI, anicteric sclera B; pink conjunctiva; PERRLA, normal oropharynx, moist oral and nasal mucosa. Tympanic membrane , nose , throat clear. Neck: Trachea midline. Supple, full range of motion, no JVD, bruit , hepatojugular reflex , lymphadenopathy or masses, or other lesions Cardiac: Regular rhythm, regular rate no murmurs, rubs, or gallops. Normal S1 and S2, no S3 noticed. PMI is normal. Respiratory: Equal breath sounds bilaterally, no tachypnea; lungs clear to auscultation bilaterally, no wheezing ,rub or rales, or crackles. Chest wall is symmetric and without deformity. No signs of trauma. Chest wall is nontender. No signs of respiratory distress. Resonance is normal upon percussion bilaterally. Gastrointestinal: Abdomen symmetric, non-distended, soft, non-tender, normal bowel sounds x4 quadrant, normoactive, no hepatosplenomegaly , no masses , no bruit, no flank pain bilaterally. No voluntary guarding, rebound, or rigidity. No tenderness to percussion. No pulsatile masses. Equal femoral pulses. No Dye's sign or McBurney point tenderness. Back; no CVA tenderness bilaterally, no deformities. Neck and back are without deformity as well. No tenderness noted on palpation of the spinous processes. Spinous processes are midline. Cervical, thoracic, and lumbar paraspinal muscles are not tender and are without spasm. Musculoskeletal: Extremities, normal range of motion, non-tender, muscle st rength 5/5 x 4. Negative Homans signs bilaterally on lower extremity. Distal pulses full symmetrical, no clubbing, cyanosis , edema. Neurological: Speech is clear, alert, and oriented x 4. No motor or sensory deficit, deep tendon reflexes normal, cerebellar intact. Cranial nerves II-XII intact. Psych: Alert and or appropriate, normal affect. Vascular: Good distal pulses, which are equal x4; capillary refill less than 2 seconds. Lymphatic, no lymphadenopathy. Problem\Assessment\Plan Assessment/Plan 44-year-old female with history of bipolar disorder, schizophrenia is admitted to the [facility] for suicidal thoughts Bipolar disorder Schizophrenia Suicidal thoughts -management per Psychiatry Epilepsy -continue Keppra 750 mg q.12 Dyslipidemia LDL 108 -repeat lipid profile in three months Methamphetamine abuse-counseling program Nicotine abuse-nicotine patch History of opioid addiction- quitted few months ago Lap completed, reviewed, CBC, CMP, urine drug screen Hospitalist team we will follow patient per protocol Date of Service: July 19, 2024 Billing Provider: SUSANA CABRERA MD Common Visit Codes: [id number] INP/OBS CARE(LOW) SUSANA CABRERA MD July 19, 2024 19:46
== END 2024-07-19 10:14 | disposition home or self-care (01) | DRG 751 ==
LOC: ADULT MH 15:05 → UNDOADMIN 15:21 → ADULT MH 15:21
PROVIDERS: ADMIT Psychiatry & Neurology Psychiatry; ATTEND Psychiatry & Neurology Psychiatry
PROC: GZHZZZZ Group Psychotherapy (ICD-10-PCS; principal; 2024-07-13)
PROC: GZ51ZZZ Individual Psychotherapy, Behavioral (ICD-10-PCS; 2024-07-13)
DX: F33.1 Major depressive disorder, recurrent, moderate (principal); R45.851 Suicidal ideations; G40.909 Epilepsy, unspecified, not intractable, without status epilepticus; F15.10 Other stimulant abuse, uncomplicated; F11.20 Opioid dependence, uncomplicated; F20.9 Schizophrenia, unspecified; F41.9 Anxiety disorder, unspecified; E78.5 Hyperlipidemia, unspecified; Z79.899 Other long term (current) drug therapy
CPT/HCPCS: 36415; 80053; 80061; 80305; 85025; 86704; 86705; 87081; 87340; Q0161; Q0177